=== PATIENT | female | born 1985 | race Caucasian/White ===

== ENCOUNTER 2017-03-05 08:31 | Emergency (ER) | payer MEDICAID, SELFPAY ==
[~2017-03-05] VITALS: Ht 165.1 cm; Wt 96.3 kg
[2017-03-05 08:32] VITALS: BP 136/89
[2017-03-05] MEDS ORDERED: LIDOCAINE 1%, 20ML ONE (09:18)
[2017-03-05] MEDS ORDERED: LIDOCAINE 1%, 20ML SQ ONE (09:30)
== END 2017-03-05 10:13 | disposition home or self-care (01) ==
LOC: ED 09:00
DX: L02.413 Cutaneous abscess of right upper limb (principal); I10 Essential (primary) hypertension
CPT/HCPCS: 10060

== ENCOUNTER 2018-04-02 10:52 | Inpatient (IN) | payer MEDICAID, OTHER ==
[~2018-04-02] VITALS: Ht 167.6 cm; Wt 103.8 kg
[2018-04-02 11:58] LABS: BASOPHILS # (AUTO) 0.01 x10^3/uL (0-0.1); BASOPHILS % (AUTO) 0 % (0-1); EOSINOPHILS # (AUTO) 0.14 x10^3/uL (0-0.4); EOSINOPHILS % (AUTO) 3 % (1-7); LYMPHOCYTES # (AUTO) 1.52 x10^3/uL (1-3.4); LYMPHOCYTES % (AUTO) 30 % (22-44); MD NO; MEAN CORPUSCULAR HEMOGLOBIN 29.8 pg (27.0-34.8); MEAN CORPUSCULAR HGB CONC 33.2 g/dL (32.4-35.8); MEAN CORPUSCULAR VOLUME 89.8 fL (80-100); MEAN PLATELET VOLUME 7.9 fL (7.4-10.4); MONOCYTES # (AUTO) 0.61 x10^3/uL (0.2-0.8); MONOCYTES % (AUTO) 12 % (2-9); NEUTROPHILS # (AUTO) 2.75 x10^3/uL (1.8-6.8); NEUTROPHILS % (AUTO) 55 % (42-75); PLATELET COUNT 196 x10^3/uL (130-400); RED BLOOD COUNT 4.45 x10^6/uL (3.82-5.3); RED CELL DISTRIBUTION WIDTH 13.6 % (9.6-15.2)
[2018-04-02] MEDS ORDERED: SODIUM CHLORIDE FLUSH 10ML SYR IVF ONE (12:00)
[2018-04-02] MEDS ORDERED: MAALOX/HYOSCYAMINE/LIDOCAINE 45 ML BTL PO ONE (12:00)
[2018-04-02] MEDS ORDERED: ONDANSETRON ODT 4 MG PO ONE (12:00)
[2018-04-02] MEDS ORDERED: FAMOTIDINE 20 MG TABLET PO ONE (12:00)
[2018-04-02 12:30] LABS: ANION GAP 5 mmol/L (5-15); CALCIUM 8.5 mg/dL (8.5-10.1); CHLORIDE 107 mmol/L (98-107)
[2018-04-02 12:36] LABS: ALANINE AMINOTRANSFERASE 421 U/L (12-78); ALKALINE PHOSPHATASE 118 U/L (45-117); BILIRUBIN,TOTAL 0.8 mg/dL (0.2-1.0); TOTAL PROTEIN 6.7 g/dL (6.4-8.2)
[2018-04-02 12:45] LABS: MICROSCOPIC INDICATED
[2018-04-02 13:31] LABS: CULTURE INDICATED? NO
[2018-04-02] MEDS ORDERED: FAMOTIDINE 20 MG/2 ML IVPush ONE (14:00)
[2018-04-02] MEDS ORDERED: MORPHINE SULFATE 4 MG/ML, 1ML IVPush ONE (14:00)
[2018-04-02] MEDS ORDERED: ONDANSETRON 2MG/ML, 2ML IVPush ONE (14:00)
[2018-04-02] MEDS ORDERED: CEFOTETAN PMX 1GM/50ML 50 ML IV ONE (14:00)
[2018-04-02] MEDS ORDERED: SODIUM CHLORIDE 0.9% 1,000ML IVBOLUS ONE (14:00)
[2018-04-02] MEDS ORDERED: EPINEPHRINE 1 MG/ML, 1ML ONE (14:05)
[2018-04-02] MEDS ORDERED: BUPIVACAINE/PF 0.5% ONE (14:05)
[2018-04-02] MEDS ORDERED: ONDANSETRON 2MG/ML, 2ML ONE ×3 (14:07→15:37)
[2018-04-02] MEDS ORDERED: MORPHINE SULFATE 4 MG/ML, 1ML ONE (14:07)
[2018-04-02] MEDS ORDERED: CEFOTETAN PMX 1GM/50ML 50 ML ONE (14:07)
[2018-04-02] MEDS ORDERED: FAMOTIDINE 20 MG/2 ML ONE (14:08)
[2018-04-02] MEDS ORDERED: PROPOFOL 10 MG/ML, 20ML ONE (14:15)
[2018-04-02] MEDS ORDERED: CEFOTETAN PMX 2GM/50ML 50 ML ONE (14:19)
[2018-04-02] MEDS ORDERED: ONDANSETRON ODT 8 MG PO PRN (14:30)
[2018-04-02] MEDS ORDERED: EPHEDRINE 50 MG/ML, 1ML IVPush PRN (14:30)
[2018-04-02] MEDS ORDERED: DEXAMETHASONE 4 MG/ML, 1ML ONE (14:30)
[2018-04-02] MEDS ORDERED: HYDROmorphone 1 MG/ML, 1ML IV PRN (14:30)
[2018-04-02] MEDS ORDERED: OXYcodone 5 MG/5 ML ORAL.SOL UDC PO PRN (14:30)
[2018-04-02] MEDS ORDERED: ACETAMINOPHEN 325 MG TABLET PO PRN (14:30)
[2018-04-02] MEDS ORDERED: LABETALOL 5MG/ML, 20ML IV PRN (14:30)
[2018-04-02] MEDS ORDERED: ALBUTEROL SULFATE 2.5 MG/3 ML NPPB PRN (14:30)
[2018-04-02] MEDS ORDERED: PROMETHAZINE 25 MG/ML, 1ML IV PRN (14:30)
[2018-04-02] MEDS ORDERED: FENTANYL PF 250 MCG/5ML ONE (14:30)
[2018-04-02] MEDS ORDERED: MEPERIDINE/PF 25MG/0.5ML IVPush PRN (14:30)
[2018-04-02] MEDS ORDERED: hydrALAzine 20 MG/ML, 1ML IV PRN (14:30)
[2018-04-02] MEDS ORDERED: ROCURONIUM 10MG/ML,5ML ONE (14:30)
[2018-04-02] MEDS ORDERED: METOPROLOL 1 MG/ML, 5ML IV PRN (14:30)
[2018-04-02] MEDS ORDERED: BUPIVACAINE/PF-EPI 0.5% 1:200K IM ONE (14:45)
[2018-04-02] MEDS ORDERED: OXYcodone 5 MG/5 ML ORAL.SOL UDC ONE (15:31)
[2018-04-02] MEDS ORDERED: FENTANYL PF 100 MCG/2ML ONE (15:37)
[2018-04-02] MEDS: FENTANYL PF 100 MCG/2ML IV PRN ×2 (15:43→15:55)
[2018-04-02 15:47] LABS: AMPHETAMINE SCREEN, URINE Positive (Negative); BARBITURATE SCREEN, URINE Negative (Negative); BENZODIAZEPINE SCREEN, URINE Negative (Negative); CANNABINOID SCREEN, URINE Negative (Negative); COCAINE SCREEN, URINE Negative (Negative); METHADONE SCREEN, URINE Negative (Negative); OPIATE SCREEN, URINE Negative (Negative)
[2018-04-02 16:30] VITALS: BP 143/90
[2018-04-02] MEDS: MORPHINE SULFATE 4 MG/ML, 1ML IV PRN ×2 (16:44→20:19)
[2018-04-02] MEDS ORDERED: POLY17PO5 PO (17:03)
[2018-04-02] MEDS ORDERED: OXYC-302 PO (17:03)
[2018-04-02] MEDS ORDERED: PNEUMOCOCCAL 23 VACCINE IM-VACC ONE (17:30)
[2018-04-02] MEDS: OXYcodone/APAP 5/325MG TABLET PO PRN ×2 (20:19→21:53)
[2018-04-02] MEDS: ONDANSETRON 2MG/ML, 2ML IV PRN (20:19)
[2018-04-02] MEDS: SODIUM CHLORIDE FLUSH 3ML SYRINGE IVF SCH (21:00)
[2018-04-02 21:04] VITALS: BP 143/81
[2018-04-03 00:32] VITALS: BP 115/75
[2018-04-03 04:55] VITALS: BP 119/76
[2018-04-03] MEDS: IBUPROFEN 200 MG TABLET PO PRN ×2 (06:24→15:18)
[2018-04-03 06:45] VITALS: BP 113/71
[2018-04-03] MEDS: SODIUM CHLORIDE FLUSH 3ML SYRINGE IVF SCH ×2 (10:27→21:00)
[2018-04-03] MEDS: OXYcodone/APAP 5/325MG TABLET PO PRN ×3 (11:38→23:27)
[2018-04-03 12:54] VITALS: BP 120/74
[2018-04-03] MEDS ORDERED: NEOSTIGMINE 1 MG/ML, 10ML ONE (14:31)
[2018-04-03] MEDS ORDERED: GLYCOPYRROLATE 0.2MG/1ML, 5ML ONE (14:31)
[2018-04-03 19:55] VITALS: BP 106/66
[2018-04-03] MEDS: ONDANSETRON 2MG/ML, 2ML IV PRN (23:34)
[2018-04-04 03:01] VITALS: BP 118/78
[2018-04-04 07:18] VITALS: BP 120/66
[2018-04-04] MEDS: SODIUM CHLORIDE FLUSH 3ML SYRINGE IVF SCH (07:28)
[2018-04-04 13:39] VITALS: BP 103/65
== END 2018-04-04 14:45 | disposition home or self-care (01) | DRG 419 ==
LOC: ED 13:24 → EDIP 13:55 → 4NOR 16:17
PROVIDERS: ADMIT Colon & Rectal Surgery; ATTEND Colon & Rectal Surgery
PROC: 0FT44ZZ Resection of Gallbladder, Percutaneous Endoscopic Approach (ICD-10-PCS; principal; 2018-04-02 14:00)
DX: K80.01 Calculus of gallbladder with acute cholecystitis with obstruction (principal); E86.0 Dehydration; F15.90 Other stimulant use, unspecified, uncomplicated; F17.200 Nicotine dependence, unspecified, uncomplicated; I10 Essential (primary) hypertension; Z88.8 Allergy status to other drugs, medicaments and biological substances
CPT/HCPCS: 36415; 71045; 76700; 80053; 80307; 81001; 83690; 84703; 85025; 86677; 88304; 90732; 93005; J0171; J1100; J2405; J2704; J2710; J3010; J3490; Q0162; J7030; S0028; S0074

== ENCOUNTER 2018-04-06 20:37 | Emergency (ER) | payer MEDICAID, OTHER ==
[~2018-04-06] VITALS: Ht 167.6 cm; Wt 99.0 kg
[~2018-04-06 20:37] MED LIST: OXYC-302 PO; POLY17PO5 PO
[2018-04-06] MEDS ORDERED: LOSARTAN (20:48)
[2018-04-06] MEDS ORDERED: BUSPIRONE (20:49)
[2018-04-06] MEDS ORDERED: TRAZ100T15 PO (20:49)
[2018-04-06] MEDS ORDERED: ALBUTEROL (20:50)
[2018-04-06] MEDS ORDERED: WELLBUTRIN (20:50)
[2018-04-06] MEDS ORDERED: ASPIRIN 81 MG TABLET CHEW ONE (21:29)
[2018-04-06] MEDS ORDERED: MORPHINE SULFATE 4 MG/ML, 1ML ONE (21:29)
[2018-04-06] MEDS ORDERED: ASPIRIN 81 MG TABLET CHEW PO ONE (21:30)
[2018-04-06] MEDS ORDERED: MORPHINE SULFATE 4 MG/ML, 1ML IVPush PRN (21:30)
[2018-04-06] MEDS ORDERED: SODIUM CHLORIDE FLUSH 10ML SYR IVF ONE (21:30)
[2018-04-06 21:32] LABS: BASOPHILS # (AUTO) 0.08 x10^3/uL (0-0.1); BASOPHILS % (AUTO) 1 % (0-1); EOSINOPHILS # (AUTO) 0.25 x10^3/uL (0-0.4); EOSINOPHILS % (AUTO) 3 % (1-7); LYMPHOCYTES # (AUTO) 3.15 x10^3/uL (1-3.4); LYMPHOCYTES % (AUTO) 40 % (22-44); MD NO; MEAN CORPUSCULAR HGB CONC 33.4 g/dL (32.4-35.8); MEAN CORPUSCULAR VOLUME 89.8 fL (80-100); MEAN PLATELET VOLUME 7.6 fL (7.4-10.4); MONOCYTES # (AUTO) 0.89 x10^3/uL (0.2-0.8); MONOCYTES % (AUTO) 11 % (2-9); NEUTROPHILS # (AUTO) 3.46 x10^3/uL (1.8-6.8); NEUTROPHILS % (AUTO) 44 % (42-75); PLATELET COUNT 294 x10^3/uL (130-400); RED BLOOD COUNT 3.73 x10^6/uL (3.82-5.3); RED CELL DISTRIBUTION WIDTH 13.9 % (9.6-15.2)
[2018-04-06 21:41] LABS: ALANINE AMINOTRANSFERASE 232 U/L (12-78); ALBUMIN 3.1 g/dL (3.4-5.0); ANION GAP 7 mmol/L (5-15); CALCIUM 8.2 mg/dL (8.5-10.1); CHLORIDE 107 mmol/L (98-107); CREATININE 0.59 mg/dL (0.55-1.02)
[2018-04-06 21:46] LABS: ALKALINE PHOSPHATASE 170 U/L (45-117); BILIRUBIN,TOTAL 1.2 mg/dL (0.2-1.0); TOTAL PROTEIN 6.6 g/dL (6.4-8.2); TROPONIN I < 0.015 ng/mL (0.000-0.045)
[2018-04-06] MEDS ORDERED: OMNIPAQUE 350 MG/ML, 100ML BOTTLE ONE (22:55)
[2018-04-06 23:41] LABS: MICROSCOPIC NOT IND
[2018-04-06 23:43] LABS: CULTURE INDICATED? NO
[2018-04-07 00:25] VITALS: BP 125/73
== END 2018-04-07 00:38 | disposition home or self-care (01) ==
LOC: ED 21:17
DX: R07.89 Other chest pain (principal); M54.5 Low back pain; I10 Essential (primary) hypertension; Z90.49 Acquired absence of other specified parts of digestive tract; Z88.8 Allergy status to other drugs, medicaments and biological substances
CPT/HCPCS: 36415; 71045; 71260; 80053; 81003; 83605; 84484; 85025; 85379; 93005; 96374; 99285; Q9967

== ENCOUNTER 2020-03-19 10:16 | Emergency (ER) | payer MEDICAID ==
[~2020-03-19] VITALS: Ht 167.6 cm; Wt 113.7 kg
[~2020-03-19 10:16] MED LIST changes: +ALBUTEROL; +BUSPIRONE; +LOSARTAN; +TRAZ-175 PO; +WELLBUTRIN
--- NOTE | 2020-03-19 10:39 | NUR ---
pt presents to ED with periumbilical pain and occaisional uterine cramping x 1 week, denies any other symptoms. pt denies vag bleeding/discharge. pt states she cannot recall her last period (was within last 3 months) but received blood test through her PCP who told her she is approx 9 weeks . pt a&o, resps even and unlabored, nadn. pt seen and examined by MD Ferrell, upon MD exam pt noted some left upper abd tenderness. Pt attached to bp and spo2 monitors, call light in reach, awaiting orders at this time.
--- NOTE | 2020-03-19 10:47 | NUR ---
this RN clarified orders with MD Ferrell who instructed RN to obtain clean catch urine sample for ua. pt given supplies and educated on how to collect clean catch urine sample. pt ambulatory to bathroom with steady gait at this time.
--- NOTE | 2020-03-19 11:15 | NUR ---
US CALLED REQUESTING TO CHANGE ORDER TO US LESS THAN 14 WEEKS, GRAYSON ARAYA NOTIFIED. PER , RN OK TO CHANGE ORDER. PT TO US AT THIS TIME.
--- NOTE | 2020-03-19 11:36 | NUR ---
LAB PAGED TO RUN URINE THAT WAS SENT TO LAB.
[2020-03-19 11:43] LABS: MICROSCOPIC NOT IND
[2020-03-19 12:07] LABS: BASOPHILS # (AUTO) 0.03 x10^3/uL (0-0.1); BASOPHILS % (AUTO) 0 % (0-1); EOSINOPHILS # (AUTO) 0.13 x10^3/uL (0-0.4); EOSINOPHILS % (AUTO) 1 % (1-7); LYMPHOCYTES # (AUTO) 2.11 x10^3/uL (1-3.4); LYMPHOCYTES % (AUTO) 22 % (22-44); MD NO; MEAN CORPUSCULAR HEMOGLOBIN 30.4 pg (27.0-34.8); MEAN CORPUSCULAR HGB CONC 33.7 g/dL (32.4-35.8); MEAN CORPUSCULAR VOLUME 90.2 fL (80-100); MEAN PLATELET VOLUME 6.9 fL (7.4-10.4); MONOCYTES # (AUTO) 0.65 x10^3/uL (0.2-0.8); MONOCYTES % (AUTO) 7 % (2-9); NEUTROPHILS # (AUTO) 6.69 x10^3/uL (1.8-6.8); NEUTROPHILS % (AUTO) 70 % (42-75); PLATELET COUNT 276 x10^3/uL (130-400); RED CELL DISTRIBUTION WIDTH 13.8 % (9.6-15.2)
[2020-03-19 12:18] LABS: ALANINE AMINOTRANSFERASE 51 U/L (12-78); ALBUMIN 3.1 g/dL (3.4-5.0); ANION GAP 6 mmol/L (5-15); CALCIUM 8.4 mg/dL (8.5-10.1); CHLORIDE 108 mmol/L (98-107)
[2020-03-19 12:20] LABS: ALKALINE PHOSPHATASE 73 U/L (45-117); BILIRUBIN,TOTAL 0.5 mg/dL (0.2-1.0); TOTAL PROTEIN 7.4 g/dL (6.4-8.2)
[2020-03-19 12:40] VITALS: BP 138/82
--- NOTE | 2020-03-19 12:46 | NUR ---
DC ORDERS RECEIVED, PT GIVEN DC INSTRUCTIONS, PT EDUCATED TO QUIT SMOKING AND DRUG USE FOR OPTIMAL OUTCOMES. PT VERBALIZES UNDERSTANDING. PT GIVEN INSTRUCTIONS TO FOLLOW UP WITH OBGYN FOR CARE. PT A&O, RESPS EVEN AND UNLABORED, NO COMPLAINT AT DC. PT AMBULATORY TO DC DESK WITH STEADY GAIT, ALL QUESTIONS ANSWERED.
== END 2020-03-19 12:44 | disposition home or self-care (01) ==
LOC: ED 12:40
DX: O26.891 Other specified pregnancy related conditions, first trimester (principal); R10.2 Pelvic and perineal pain; F17.210 Nicotine dependence, cigarettes, uncomplicated; Z90.49 Acquired absence of other specified parts of digestive tract; Z3A.09 9 weeks gestation of pregnancy
CPT/HCPCS: 36415; 76801; 80053; 81003; 85025; 99285